=== PATIENT | female | born 1950 | race Caucasian/White ===

== ENCOUNTER → 2018-03-01 | Outpatient (CLI) | payer OTHER, MEDICARE ==
[~2018-03-01] MED LIST: ACETAMINOPHEN325 M1 PO; ASPIRIN EC81 M1 PO; LISINOPRIL5 MG PO; NICOTINE TRANSD21 M1 TD; PEPCID40 MG PO; PLAVIX 75 MG TA75 MG PO; PREMARIN0.625 MG PO; TOPROL XL25 MG PO; ZOCOR 10 MG TAB10 MG PO
== END ==
LOC: RAD 12:09
DX: M54.5 Low back pain (principal); W19.XXXA Unspecified fall, initial encounter

== ENCOUNTER → 2018-03-15 | Outpatient (CLI) | payer OTHER, MEDICARE | LOC: RAD 11:13 | DX: Z12.31 Encounter for screening mammogram for malignant neoplasm of breast (principal) ==

== ENCOUNTER 2018-07-07 05:14 | Inpatient (IN) | payer OTHER, MEDICARE ==
[2018-06-26 08:57] LABS: URINE BILIRUBIN NEGATIVE (Negative); URINE BLOOD TRACE (Negative); URINE CLARITY CLEAR; URINE COLOR YELLOW; URINE GLUCOSE-RANDOM* NEGATIVE (Negative); URINE KETONES NEGATIVE (Negative); URINE LEUKOCYTES-REFLEX NEGATIVE (Negative); URINE NITRITE-REFLEX NEGATIVE (Negative); URINE PROTEIN (DIPSTICK) NEGATIVE (Negative); URINE UROBILINOGEN 0.2 E.U./dl (0.2-1.0)
[2018-06-26 08:59] LABS: HEMATOCRIT 42.5 % (37.0-47.0); HEMOGLOBIN 14.7 gm/dL (12.0-15.0); MCH 32.9 pg (26.0-34.0); MCHC 34.6 g/dL (28.0-37.0); MCV 95.2 fL (80.0-100.0); RBC 4.46 mil/uL (4.20-5.00); RDW 13.7 % (10.5-14.5)
[2018-06-26 09:06] LABS: APTT 36.6 Seconds (24.5-32.8); PROTIME 9.8 Seconds (9.3-11.4)
[2018-06-26 09:07] LABS: ALBUMIN 3.9 g/dL (3.4-5.0); CALCIUM 9.4 mg/dL (8.5-10.1); CREATININE 0.9 mg/dL (0.6-1.0); TOTAL BILIRUBIN 0.4 mg/dL (<0.1-1.0); TOTAL PROTEIN 7.2 g/dL (6.4-8.2)
--- NOTE | 2018-06-27 08:16 | EKG ---
[address] [place] [address] ELECTROCARDIOGRAM REPORT Name: BRAYNT MCGHEE Room #: PRE IN M.R.#: [id number] Admission: Attend Phys: Delfin Benitez MD Discharge: Date of : 54 Report #: [id number] THIS REPORT FOR: //name// [facility] Test Date: 2018-06-26 Test Time: 08:48:36 Pat Name: BRYANT MCGHEE Department: Room: Gender: F Research And Development Specialist: Patito STEWART : 1950 Requested By: Delfin Benitez Order Number: [id number] : Curtis Burgess Measurements Intervals [place] Rate: 78 P: 81 MN: 210 QRS: 65 QRSD: 83 T: 28 QT: 393 QTc: 448 Interpretive Statements Sinus rhythm Compared to ECG 11/09/2010 07:14:40 Myocardial infarct finding no longer present Electronically Signed On 06-27-2018 8:15:59 BARREL [employer]OOK by Curtis Burgess [email or web address] <ELECTRONICALLY SIGNED> By: Curtis Burgess MD 06/27/18 0815 0848 [id number] MD JENISE Bhatia
[~2018-07-07] VITALS: Ht 157.5 cm; Wt 46.7 kg
[2018-07-07] VITALS (9 sets, daily range): BP systolic 95–119; BP diastolic 44–68
[~2018-07-07 05:14] MED LIST changes: +UNICOMPLEX M TA1 TA1 PO; +VALIUM5 MG PO
--- NOTE | 2018-07-07 18:35 | NUR ---
PATIENT ALERT AND ORIENTED X4, ON 2L NASAL CANNULA. TOLERATING CLEAR LIQUID DIET. BOYCE PATENT AND DRAINING. LEFT ART LINE INTACT. RIGHT CAROTID DRESSING IN PLACE WITH CHHAYA DRAIN UNDERNEATH, DRAINING SMALL SEROUS FLUID. DR. WILSON TO CHANGE IN THE MORNING, SUPPLIES PRESENT AT THE BEDSIDE. FAMILY AND PATIENT UPDATED ON THE PLAN OF CARE. NO SIGNS OF ACUTE DISTRESS NOTED AT THIS TIME. WILL CONTINUE TO MONITOR.
[2018-07-08] VITALS (19 sets, daily range): BP systolic 109–151; BP diastolic 36–76
[2018-07-08 04:56] LABS: HEMATOCRIT 37.1 % (37.0-47.0); HEMOGLOBIN 12.2 gm/dL (12.0-15.0); MCH 32.4 pg (26.0-34.0); MCV 98.4 fL (80.0-100.0); RBC 3.77 mil/uL (4.20-5.00); RDW 14.3 % (10.5-14.5); WBC 12.1 thou/uL (4.0-11.0)
[2018-07-08 04:59] LABS: CALCIUM 8.4 mg/dL (8.5-10.1); CREATININE 0.7 mg/dL (0.6-1.0); POTASSIUM 4.5 mmol/L (3.5-5.1)
--- NOTE | 2018-07-08 05:00 | NUR ---
ASSUMED CARE OF PT AT 1900. PT RESTING IN BED SINCE SURGERY, HAS NOT BEEN UP AND WALKING. PT'S PAIN HAS BEEN CONTROLLED, SHE HAS BEEN WAKING UP AND REQUESTING PAIN MEDS Q2H, STATING THAT SHE CAN FEEL HER PAIN BEGINNING TO ESCALATE. OVERALL, PT SAYS HER PAIN HAS LESSENED OVERNIGHT. FOR LAST DOSE OF FENTANYL, PT AGREED TO HAVING 25 MCG INSTEAD OF 50 MCG, IN ORDER TO TRY AND GET OFF OF THE IV PAIN MEDS. PT REPORTED THAT THE 25 MCG DID PROVIDE PAIN RELIEF. PT AGREED TO GET UP INTO CHAIR IN AN HOUR, AND POSSIBLY WALK. BP HAS BEEN STABLE, THERE HAS BEEN NO NEED FOR RAHEL OR CARDENE OVERNIGHT. PT'S O2 DOWN TO 1L NC, BUT DID DESAT WHEN TAKEN OFF COMPLETELY. RIGHT CAROTID DRESSING CHANGED X1 LAST NIGHT AND IS CURRENTLY CDI. PT EXPRESSED THAT SHE WISHES TO QUIT SMOKING, BUT HAS HAD DIFFICULTY QUITTING IN THE PAST. EDUCATION GIVEN. PT UNDERSTANDS THAT IT IS IMPORTANT THAT SHE QUIT FOR GOOD THIS TIME, BUT IS NOT SURE IF SHE WILL BE ABLE TO. ASSESSMENTS AND VITALS DOCUMENTED. WILL CONTINUE TO MONITOR.
--- NOTE | 2018-07-08 11:51 | O ---
[facility] [place] [address] OPERATIVE REPORT Name: BRYANT MCGHEE ANN Room #: 239-P ADM IN M.R.#: [id number] Admission: 07/07/18 Attend Phys: Brett Junior MD Discharge: Date of : 54 Report #: [id number] THIS REPORT FOR: //name// CC: Umair Benitez DATE OF SERVICE: 07/07/2018 PREOPERATIVE DIAGNOSIS: Right carotid artery stenosis. POSTOPERATIVE DIAGNOSIS: Right carotid artery stenosis. OPERATION: Right carotid endarterectomy with patch closure. SURGEON: Delfin Benitez M.D. STONECUTTER APPRENTICE HAND: ELLIE Plascencia. ANESTHESIA: General. INDICATIONS: The patient is a 67-year-old, seen for Dr. Fontenot. The patient has 80% right internal carotid stenosis. This has been asymptomatic. The contralateral side has trivial disease. FINDINGS AND TECHNIQUE: After general anesthesia was established, an oblique right neck incision was made. Common facial vein was divided. Common internal and external carotid arteries were identified and controlled. 10,000 units of heparin were given. Continuous electroencephalographic monitoring was performed during the operation when the carotid vessels were occluded. There were no EEG changes noted. The arteriotomy was made. The endarterectomy was performed without creating a distal flap. Neointima was inspected and all loose debris was removed. Tacking sutures were placed at the transition zone. When the endarterectomy was deemed to be satisfactory, the arteriotomy was closed with a continuous Prolene and thin walled pericardial patch. Prior to finishing the closure, the carotid vessels were backbled. Flow was established first through the external, then the internal carotid artery. 50 mg of protamine was given to reverse the heparin. When hemostasis was satisfactory, a Nicole drain was brought out through the bottom pole of the incision, and the wound was closed in layers. The patient was taken to the [facility] [address] [place] [address] OPERATIVE REPORT Name: LITZYKHLOE Room #: 239-P ADM IN M.R.#: [id number] Admission: 07/07/18 Attend Phys: Brett Junior MD Discharge: Date of : 54 Report #: [id number] recovery area in good condition where her neurologic progress was monitored. All counts were reported as correct. <ELECTRONICALLY SIGNED> By: Delfin Benitez MD 07/08/18 1151 1050 1135 Delfin Benitez MD /nt
== END 2018-07-08 15:30 | disposition home or self-care (01) | DRG 39 ==
LOC: TBA 05:14 → ICU 05:14 → PRE 05:37 → ICU 11:40
PROVIDERS: Surgery Vascular Surgery; ADMIT Hospitalist
DX: I65.21 Occlusion and stenosis of right carotid artery (principal); R00.1 Bradycardia, unspecified; I10 Essential (primary) hypertension; E78.5 Hyperlipidemia, unspecified; I25.10 Atherosclerotic heart disease of native coronary artery without angina pectoris; Z95.5 Presence of coronary angioplasty implant and graft; Z79.82 Long term (current) use of aspirin; Z79.899 Other long term (current) drug therapy; I25.2 Old myocardial infarction; Z87.442 Personal history of urinary calculi; Z90.710 Acquired absence of both cervix and uterus; Z98.42 Cataract extraction status, left eye; Z98.41 Cataract extraction status, right eye; Z71.6 Tobacco abuse counseling
CPT/HCPCS: 10204; 47375; 50010; 50101; 50386; 50417; 50455; 51301; 51751; 52279; 54118; 56524; 56526; 56528; 56531; 56534; 62110; 62900; 65020; 65040; 70005

== ENCOUNTER 2019-02-19 04:32 | Emergency (ER) | payer OTHER, MEDICARE ==
[~2019-02-19] VITALS: Ht 157.5 cm; Wt 46.3 kg
[2019-02-19 04:39] VITALS: BP 149/87
[2019-02-19 04:54] LABS: URINE BILIRUBIN 1+ (Negative); URINE BLOOD 3+ (Negative); URINE CLARITY CLOUDY; URINE COLOR BROWN; URINE GLUCOSE-RANDOM* NEGATIVE (Negative); URINE KETONES NEGATIVE (Negative); URINE PROTEIN (DIPSTICK) 2+ (Negative)
[2019-02-19 04:55] LABS: URINE LEUKOCYTES-REFLEX 3+ (Negative); URINE NITRITE-REFLEX POSITIVE (Negative)
[2019-02-19 04:56] LABS: ICTOTEST (BILI CONFIRMATORY) Positive (Negative)
[2019-02-19] MEDS ORDERED: PYRIDIUM100 M1 PO (05:04)
[2019-02-19] MEDS ORDERED: KEFLEX500 M1 PO (05:04)
[2019-02-19 05:36] LABS: CASTS None Seen /LPF (None Seen); MUCUS None Seen strn/LPF (None Seen); URINE WBC-REFLEX >25 Many /HPF (0-5)
[2019-02-19 05:37] LABS: BACTERIA-REFLEX 1-9 Few /HPF (None Seen); CRYSTALS None Seen /LPF (None Seen); TRANSITIONAL EPITHEL CELL 0-3 Few /LPF (None Seen); YEAST-REFLEX Present (None Seen)
[2019-02-19 05:38] LABS: SQUAMOUS 0-3 Few /LPF (0-3)
== END 2019-02-19 05:23 | disposition home or self-care (01) ==
LOC: ER 04:32
PROVIDERS: Emergency Medicine
DX: N39.0 Urinary tract infection, site not specified (principal); F17.210 Nicotine dependence, cigarettes, uncomplicated; I10 Essential (primary) hypertension; E78.5 Hyperlipidemia, unspecified; Z95.5 Presence of coronary angioplasty implant and graft; Z90.710 Acquired absence of both cervix and uterus; Z90.49 Acquired absence of other specified parts of digestive tract; Z87.442 Personal history of urinary calculi

== ENCOUNTER 2019-03-26 09:36 | Emergency (ER) | payer OTHER, MEDICARE ==
[~2019-03-26] VITALS: Ht 160 cm; Wt 63.5 kg
--- NOTE | ~2019-03-26 | EKG ---
[place] [address] [facility] [place] [address] ELECTROCARDIOGRAM REPORT Name: BRYANT MCGHEE Room #: PRE M.R.#: [id number] Admission: Attend Phys: Discharge: Date of : 54 Report #: [id number] THIS REPORT FOR: //name// [facility] ED Test Date: 2019-03-26 Test Time: 09:40:23 Pat Name: BRYANT MCGHEE Department: Room: Gender: F Hospital Administrator: GERARDO : 1950 Requested By: Dwayne Kovacs Order Number: [id number] MD: Measurements Intervals [place] Rate: 102 P: 83 GA: 162 QRS: 75 QRSD: 88 T: 33 QT: 360 QTc: 469 Interpretive Statements Sinus tachycardia Biatrial enlargement Anterior infarct, old Minimal ST depression, inferior leads Compared to ECG 06/26/2018 08:48:36 Atrial abnormality now present Myocardial infarct finding now present ST (T wave) deviation now present Sinus rhythm no longer present [email or web address] By: 0940 0940 Epiphany EpiphanyMD /EPI
[~2019-03-26 09:36] MED LIST changes: +KEFLEX500 M1 PO; +PYRIDIUM100 M1 PO
[2019-03-26 10:19] LABS: ABSOLUTE NEUTROPHILS 4.2 thou/uL (1.4-8.2); BASOPHILS 0.5 % (0.0-2.0); EOSINOPHILS 1.2 % (0.0-3.0); HEMATOCRIT 48.3 % (37.0-47.0); HEMOGLOBIN 16.2 gm/dL (12.0-15.0); LYMPHOCYTES 43.8 % (24.0-44.0); MCHC 33.5 g/dL (28.0-37.0); MCV 98.4 fL (80.0-100.0); MONOCYTES 6.1 % (1.0-8.0); PLATELET COUNT 336 thou/uL (150-400); POLYS 48.4 % (36.0-66.0); RBC 4.91 mil/uL (4.20-5.00); RDW 14.3 % (10.5-14.5); WBC 8.8 thou/uL (4.0-11.0)
[2019-03-26 10:20] LABS: ANION GAP 11 mmol/L (7-16); BUN 16 mg/dL (7-18); CALCIUM 9.8 mg/dL (8.5-10.1); CHLORIDE 101 mmol/L (98-107); CO2 25 mmol/L (21-32); CREATININE 1.1 mg/dL (0.6-1.0); GLUCOSE 119 mg/dL (74-106); POTASSIUM 3.9 mmol/L (3.5-5.1); SODIUM 137 mmol/L (136-145)
[2019-03-26 10:30] LABS: ALBUMIN 3.8 g/dL (3.4-5.0); SGOT 19 U/L (15-37); SGPT 16 U/L (30-65); TOTAL BILIRUBIN 0.7 mg/dL (<0.1-1.0); TOTAL PROTEIN 7.6 g/dL (6.4-8.2); TROPONIN-I <0.06 ng/mL (<0.06)
[2019-03-26 13:13] VITALS: BP 127/78
--- NOTE | 2019-03-27 16:51 | EKG ---
[facility] [place] [address] ELECTROCARDIOGRAM REPORT Name: BRYANT MCGHEE ANN Room #: DEP Michaela#: [id number] Admission: 03/26/19 Attend Phys: Discharge: 03/26/19 Date of : 54 Report #: [id number] THIS REPORT FOR: //name// [facility] ED Test Date: 2019-03-26 Test Time: 09:40:23 Pat Name: BRYANT MCGHEE Department: Room: Gender: F Validation Scientist: [facility] : 1950 Requested By: Dwayne Kovacs Order Number: [id number] MD: Roberto Lambert Measurements Intervals [place] Rate: 102 P: 83 IN: 162 QRS: 75 QRSD: 88 T: 33 QT: 360 QTc: 469 Interpretive Statements Sinus tachycardia Biatrial enlargement Anterior infarct, old Nonspecific ST segment abnormality Compared to ECG 06/26/2018 08:48:36 Anterior Q waves are now present Electronically Signed On 03-27-2019 16:51:10 JINGLE WRITER by Roberto Lambert [email or web address] <ELECTRONICALLY SIGNED> By: Roberto Lambert MD, [facility] 03/27/19 1651 9 9 Roberto Lambert MD, [facility] /EPI
== END 2019-03-26 13:21 | disposition home or self-care (01) ==
LOC: ER 09:36
PROVIDERS: Emergency Medicine
DX: R07.89 Other chest pain (principal); I25.2 Old myocardial infarction; I10 Essential (primary) hypertension; E78.5 Hyperlipidemia, unspecified; F17.210 Nicotine dependence, cigarettes, uncomplicated; Z90.49 Acquired absence of other specified parts of digestive tract; Z90.710 Acquired absence of both cervix and uterus; Z87.442 Personal history of urinary calculi

== ENCOUNTER → 2019-07-06 | Outpatient (CLI) | payer OTHER, MEDICARE ==
[~2019-07-06] MED LIST changes: +CLIMARA1 EAC3 TRANSDERM
== END ==
LOC: SJCVCIMAG 07:57
DX: I70.212 Atherosclerosis of native arteries of extremities with intermittent claudication, left leg (principal); I70.8 Atherosclerosis of other arteries; Z72.0 Tobacco use

== ENCOUNTER → 2019-07-10 | Outpatient (CLI) | payer OTHER, MEDICARE | LOC: SJCVC 08:50 | DX: I25.10 Atherosclerotic heart disease of native coronary artery without angina pectoris (principal); I10 Essential (primary) hypertension; J44.9 Chronic obstructive pulmonary disease, unspecified; I73.9 Peripheral vascular disease, unspecified; I82.409 Acute embolism and thrombosis of unspecified deep veins of unspecified lower extremity; I25.2 Old myocardial infarction; E78.00 Pure hypercholesterolemia, unspecified; Z72.0 Tobacco use; Z98.890 Other specified postprocedural states ==

== ENCOUNTER → 2019-07-12 | Outpatient (CLI) | payer OTHER, MEDICARE | LOC: SJCVCIMAG 10:15 | DX: Z01.818 Encounter for other preprocedural examination (principal); I25.10 Atherosclerotic heart disease of native coronary artery without angina pectoris; E78.00 Pure hypercholesterolemia, unspecified; I10 Essential (primary) hypertension; J44.9 Chronic obstructive pulmonary disease, unspecified; I73.9 Peripheral vascular disease, unspecified; I25.2 Old myocardial infarction; F17.200 Nicotine dependence, unspecified, uncomplicated; Z95.5 Presence of coronary angioplasty implant and graft; Z90.710 Acquired absence of both cervix and uterus; Z72.89 Other problems related to lifestyle; Z79.82 Long term (current) use of aspirin; Z79.899 Other long term (current) drug therapy ==

== ENCOUNTER → 2019-07-16 | Outpatient (CLI) | payer OTHER, MEDICARE ==
[~2019-07-16] VITALS: Ht 157.5 cm; Wt 47.6 kg
[2019-07-16 07:17] VITALS: BP 130/61
[2019-07-16 07:42] LABS: HEMATOCRIT 44.7 % (37.0-47.0); HEMOGLOBIN 14.7 gm/dL (12.0-15.0); MCH 32.1 pg (26.0-34.0); MCHC 32.9 g/dL (28.0-37.0); MCV 97.5 fL (80.0-100.0); RBC 4.59 mil/uL (4.20-5.00); RDW 14.5 % (10.5-14.5); WBC 7.2 thou/uL (4.0-11.0)
[2019-07-16 07:46] LABS: CALCIUM 9.2 mg/dL (8.5-10.1)
--- NOTE | 2019-07-16 14:53 | NUR ---
pt voided 200 mls clear yellow urine per bed alvarado.
== END | disposition home or self-care (01) ==
LOC: CATH 06:53
PROVIDERS: Nuclear Medicine Nuclear Cardiology
DX: I70.213 Atherosclerosis of native arteries of extremities with intermittent claudication, bilateral legs (principal); I70.1 Atherosclerosis of renal artery; I10 Essential (primary) hypertension; I25.2 Old myocardial infarction; I25.10 Atherosclerotic heart disease of native coronary artery without angina pectoris; J44.9 Chronic obstructive pulmonary disease, unspecified; E78.5 Hyperlipidemia, unspecified; F17.210 Nicotine dependence, cigarettes, uncomplicated; Z98.890 Other specified postprocedural states; Z79.899 Other long term (current) drug therapy; Z87.442 Personal history of urinary calculi; Z90.49 Acquired absence of other specified parts of digestive tract

== ENCOUNTER → 2019-07-19 | Outpatient (CLI) | payer OTHER, MEDICARE | LOC: SJCVCIMAG 07:42 | DX: I73.9 Peripheral vascular disease, unspecified (principal); I25.10 Atherosclerotic heart disease of native coronary artery without angina pectoris; I10 Essential (primary) hypertension; J44.9 Chronic obstructive pulmonary disease, unspecified; E78.00 Pure hypercholesterolemia, unspecified; I25.2 Old myocardial infarction; E78.5 Hyperlipidemia, unspecified; Z98.890 Other specified postprocedural states; Z95.820 Peripheral vascular angioplasty status with implants and grafts ==

== ENCOUNTER 2019-09-18 12:05 | Emergency (ER) | payer OTHER, MEDICARE ==
[~2019-09-18] VITALS: Ht 152.4 cm; Wt 46.7 kg
[2019-09-18] MEDS ORDERED: NORCO 5-325 TA1 EAC1 PO (15:12)
[2019-09-18 15:22] LABS: ABSOLUTE NEUTROPHILS 6.1 thou/uL (1.4-8.2); BASOPHILS 0.6 % (0.0-2.0); EOSINOPHILS 2.5 % (0.0-3.0); HEMATOCRIT 44.9 % (37.0-47.0); HEMOGLOBIN 14.9 gm/dL (12.0-15.0); LYMPHOCYTES 33.9 % (24.0-44.0); MCH 32.6 pg (26.0-34.0); MCHC 33.3 g/dL (28.0-37.0); MCV 97.9 fL (80.0-100.0); MONOCYTES 5.2 % (1.0-8.0); PLATELET COUNT 357 thou/uL (150-400); POLYS 57.8 % (36.0-66.0); RBC 4.58 mil/uL (4.20-5.00); WBC 10.5 thou/uL (4.0-11.0)
[2019-09-18 15:36] LABS: ANION GAP 6 mmol/L (7-16); BUN 16 mg/dL (7-18); CHLORIDE 102 mmol/L (98-107); CO2 28 mmol/L (21-32); CREATININE 0.9 mg/dL (0.6-1.0); GLUCOSE 91 mg/dL (74-106); POTASSIUM 4.3 mmol/L (3.5-5.1); SODIUM 136 mmol/L (136-145)
[2019-09-18 15:46] LABS: ALBUMIN 3.8 g/dL (3.4-5.0); SGOT 15 U/L (15-37); SGPT 22 U/L (30-65); TOTAL BILIRUBIN 0.4 mg/dL (<0.1-1.0); TOTAL PROTEIN 7.5 g/dL (6.4-8.2); TROPONIN-I <0.06 ng/mL (<0.06)
[2019-09-18 15:57] VITALS: BP 153/63
--- NOTE | 2019-09-19 08:01 | EKG ---
[facility] [place] [address] ELECTROCARDIOGRAM REPORT Name: BRYANT MCGHEE Room #: DEP [facility]#: [id number] Admission: 09/18/19 Attend Phys: Discharge: 09/18/19 Date of : 54 Report #: [id number] THIS REPORT FOR: cc: Harry Munoz James A. DO Lundgren, Craig H. MD [facility] THIS REPORT FOR: //name// [facility] ED Test Date: 2019-09-18 Test Time: 15:03:08 Pat Name: BRYANT MCGHEE Department: Room: Gender: F [employer]: : 1950 Requested By: Jefe Dominguez Order Number: [id number] MD: Roberto Lambert Measurements Intervals [place] Rate: 71 P: 80 WI: 210 QRS: 59 QRSD: 84 T: 13 QT: 420 QTc: 457 Interpretive Statements Sinus rhythm Nonspecific ST and T wave abnormality Compared to ECG 03/26/2019 09:40:23 Sinus tachycardia no longer present Electronically Signed On 09-19-2019 7:59:56 CDT by Roberto Lambert [email or web address] <ELECTRONICALLY SIGNED> By: Roberto Lambert MD, FAC 09/19/19 0759 1503 1503 Roberto Lambert MD, [facility] /EPI
== END 2019-09-18 15:58 | disposition home or self-care (01) ==
LOC: ER 12:05
PROVIDERS: Physician Assistant
DX: S20.212A Contusion of left front wall of thorax, initial encounter (principal); J93.9 Pneumothorax, unspecified; M79.652 Pain in left thigh; J44.9 Chronic obstructive pulmonary disease, unspecified; I25.2 Old myocardial infarction; I10 Essential (primary) hypertension; E78.5 Hyperlipidemia, unspecified; F17.210 Nicotine dependence, cigarettes, uncomplicated; Z90.710 Acquired absence of both cervix and uterus; Z90.49 Acquired absence of other specified parts of digestive tract; Z87.442 Personal history of urinary calculi; Z79.899 Other long term (current) drug therapy; Z79.82 Long term (current) use of aspirin; W18.09XA Striking against other object with subsequent fall, initial encounter; Y93.89 Activity, other specified; Y92.89 Other specified places as the place of occurrence of the external cause; Y99.8 Other external cause status

== ENCOUNTER → 2019-09-24 | Outpatient (CLI) | payer OTHER, MEDICARE ==
[~2019-09-24] MED LIST changes: +NORCO 5-325 TA1 EAC1 PO
== END ==
LOC: CAT 11:38
DX: R91.1 Solitary pulmonary nodule (principal); J98.4 Other disorders of lung

== ENCOUNTER → 2019-10-24 | Outpatient (CLI) | payer OTHER, MEDICARE | LOC: SJCVCIMAG 08:07 | PROVIDERS: ATTEND Nuclear Medicine Nuclear Cardiology | DX: I65.23 Occlusion and stenosis of bilateral carotid arteries (principal); I73.9 Peripheral vascular disease, unspecified; I25.10 Atherosclerotic heart disease of native coronary artery without angina pectoris; E78.00 Pure hypercholesterolemia, unspecified; I10 Essential (primary) hypertension; I77.1 Stricture of artery; I25.2 Old myocardial infarction; F17.210 Nicotine dependence, cigarettes, uncomplicated; Z98.890 Other specified postprocedural states; Z90.49 Acquired absence of other specified parts of digestive tract; Z79.899 Other long term (current) drug therapy ==

== ENCOUNTER → 2020-05-07 | Outpatient (CLI) | payer OTHER, MEDICARE | LOC: SJCVC 14:23 | PROVIDERS: ATTEND Internal Medicine Cardiovascular Disease | DX: R94.31 Abnormal electrocardiogram [ECG] [EKG] (principal); I25.10 Atherosclerotic heart disease of native coronary artery without angina pectoris; I10 Essential (primary) hypertension; E78.00 Pure hypercholesterolemia, unspecified; I73.9 Peripheral vascular disease, unspecified; F17.210 Nicotine dependence, cigarettes, uncomplicated; Z98.890 Other specified postprocedural states; Z72.89 Other problems related to lifestyle; Z79.82 Long term (current) use of aspirin; Z79.899 Other long term (current) drug therapy ==

== ENCOUNTER 2020-08-12 05:18 | Emergency (ER) | payer OTHER, MEDICARE ==
[~2020-08-12] VITALS: Ht 157.5 cm; Wt 47.6 kg
[2020-08-12 07:29] VITALS: BP 113/70
--- NOTE | 2020-08-12 07:30 | EKG ---
[place] [address] [facility] [place] [address] ELECTROCARDIOGRAM REPORT Name: BRYANT MCGHEE [id number] Admission: 08/12/20 Attend Phys: Discharge: Date of : 54 Report #: [id number] [facility] Test Date: 2020-08-12 Test Time: 05:36:07 Pat Name: BRYANT MCGHEE Department: Room: Gender: F Ore Miner: : 1950 Requested By: Veronika Bustos Order Number: [id number] MD: Gilbert Owens Measurements Intervals [place] Rate: 86 P: 80 [place]: 177 QRS: 77 QRSD: 84 T: 20 QT: 384 QTc: 460 Interpretive Statements Sinus rhythm Probable left atrial enlargement Anterior infarct, old Compared to ECG 09/18/2019 15:03:08 Myocardial infarct finding now present ST (T wave) deviation no longer present Electronically Signed On 08-12-2020 7:29:51 CDT by Gilbert Owens [email or web address] <ELECTRONICALLY SIGNED> By: Gilbert Owens MD, [facility] 08/12/20 0729 0536 0536 Gilbert Owens MD, FACC /EPI
== END 2020-08-12 07:42 | disposition still patient (30) ==
LOC: ER 05:18
DX: S20.212A Contusion of left front wall of thorax, initial encounter (principal); J44.9 Chronic obstructive pulmonary disease, unspecified; I10 Essential (primary) hypertension; E78.5 Hyperlipidemia, unspecified; I25.2 Old myocardial infarction; F17.210 Nicotine dependence, cigarettes, uncomplicated; Z90.49 Acquired absence of other specified parts of digestive tract; Z90.710 Acquired absence of both cervix and uterus; Z79.899 Other long term (current) drug therapy; Z79.82 Long term (current) use of aspirin; W18.39XA Other fall on same level, initial encounter; Y93.89 Activity, other specified; Y92.89 Other specified places as the place of occurrence of the external cause; Y99.8 Other external cause status

== ENCOUNTER → 2020-10-06 | Outpatient (CLI) | payer OTHER, MEDICARE | LOC: SJCVCIMAG 08:45 | PROVIDERS: ATTEND Internal Medicine Cardiovascular Disease | DX: I72.2 Aneurysm of renal artery (principal); I49.3 Ventricular premature depolarization; I10 Essential (primary) hypertension; M79.661 Pain in right lower leg; M79.662 Pain in left lower leg ==

== ENCOUNTER → 2020-12-10 | Outpatient (CLI) | payer OTHER, MEDICARE | LOC: SJCVC 09:33 | PROVIDERS: ATTEND Internal Medicine Cardiovascular Disease | DX: I25.10 Atherosclerotic heart disease of native coronary artery without angina pectoris (principal); I10 Essential (primary) hypertension; E78.00 Pure hypercholesterolemia, unspecified; R91.1 Solitary pulmonary nodule; I73.9 Peripheral vascular disease, unspecified; I65.23 Occlusion and stenosis of bilateral carotid arteries; E78.5 Hyperlipidemia, unspecified; I25.2 Old myocardial infarction; F17.210 Nicotine dependence, cigarettes, uncomplicated; Z98.890 Other specified postprocedural states; Z95.820 Peripheral vascular angioplasty status with implants and grafts; Z90.49 Acquired absence of other specified parts of digestive tract; Z95.5 Presence of coronary angioplasty implant and graft; Z90.710 Acquired absence of both cervix and uterus; Z79.82 Long term (current) use of aspirin; Z79.899 Other long term (current) drug therapy; Z82.49 Family history of ischemic heart disease and other diseases of the circulatory system ==

== ENCOUNTER → 2021-03-12 | Outpatient (CLI) | payer OTHER, MEDICARE | LOC: BC 09:05 | PROVIDERS: ATTEND Family Medicine | DX: Z12.31 Encounter for screening mammogram for malignant neoplasm of breast (principal) ==

== ENCOUNTER → 2021-04-20 | Outpatient (CLI) | payer OTHER, MEDICARE | LOC: NUC 10:14 | PROVIDERS: ATTEND Nurse Practitioner | DX: M81.0 Age-related osteoporosis without current pathological fracture (principal); Z78.0 Asymptomatic menopausal state ==

== ENCOUNTER → 2021-05-19 | Outpatient (CLI) | payer OTHER, MEDICARE | LOC: SJCVCIMAG 07:26 | PROVIDERS: ATTEND Nuclear Medicine Nuclear Cardiology | DX: R94.31 Abnormal electrocardiogram [ECG] [EKG] (principal); I25.10 Atherosclerotic heart disease of native coronary artery without angina pectoris; I70.203 Unspecified atherosclerosis of native arteries of extremities, bilateral legs; I10 Essential (primary) hypertension; E78.00 Pure hypercholesterolemia, unspecified; I65.23 Occlusion and stenosis of bilateral carotid arteries; J44.9 Chronic obstructive pulmonary disease, unspecified; E78.5 Hyperlipidemia, unspecified; M79.604 Pain in right leg; M79.605 Pain in left leg; F17.210 Nicotine dependence, cigarettes, uncomplicated; Z98.890 Other specified postprocedural states; Z72.89 Other problems related to lifestyle; Z79.01 Long term (current) use of anticoagulants; Z79.899 Other long term (current) drug therapy ==